=== PATIENT | female | born 1980 | race Caucasian/White ===

== ENCOUNTER 2024-11-29 12:32 | Observation (INO) | payer SELFPAY ==
[2024-11-29] VITALS (9 sets, daily range): BP systolic 93–125; BP diastolic 52–76; PULSE 78–98; RESP 17; TEMP 36.5–36.6; O2SAT 96–100; BMI 22.6; BMI 24.2
--- NOTE | 2024-11-29 12:45 | W.ED.ABDPA2 ---
Documented by User: TAD Mace 11/29/24 18:47 HPI - Abdominal Pain General: Chief Complaint: Abdominal Pain Stated Complaint: Upper ABD Pain Source: patient and EMS Mode of arrival: EMS Limitations: no limitations History of Present Illness: Patient is a 44-year-old female presents to ED today with a complaint of epigastric abdominal pain over the past 5 days or so. Patient states symptoms started with abdominal pain, diarrhea, fevers of up to 101. She states she has not had fevers in over 48 hours but continues to have epigastric pain along with nausea and vomiting as well as continued abdominal pain. No poor food exposures. No sick contacts. Vital signs are stable upon arrival. She denies history of acid reflux, GERD, peptic ulcers. MD elicited complaint: abdominal pain Onset (ago): day(s) Pain Consistency: constant Location: Diffuse Severity: moderate Pain scale (0-10): 7 Radiation: none Migration to: no migration Exacerbating factors: eating Relieving factors: nothing Associated Symptoms: Reports diarrhea, fever(s) (none in 48 hours), nausea and vomiting; Denies chills, dysuria, heartburn, hematochezia, hematuria, hematemesis and melena Related Data Home Medications ?Medication ?Instructions ?Recorded ?Confirmed No Known Home Medications 11/29/24 11/29/24 Allergies Allergy/AdvReac Type Severity Reaction Status Date / Time Penicillins Allergy Unknown Verified 11/29/24 12:43 Review of Systems Const: Reports: fever(s) (none in 48 hours); Denies: chills, body aches, fatigue or malaise Card: Denies: chest pain Resp: Denies: dyspnea GI: Reports: abdominal pain, nausea, vomiting and diarrhea; Denies: hematemesis, heartburn, hematochezia or melena : Denies: flank pain, dysuria or hematuria Musc: Denies: neck pain, back pain, extremity pain, extremity swelling, joint pain or joint swelling Skin/Breast: Denies: rash Neuro: Denies: headache(s), numbness in extremities, weakness in extremities, sensory changes or dizziness Physical Exam Const: COMMON NORMALS: no acute distress, no limitations, alert and well nourished GENERAL APPEARANCE: cooperative and disheveled ORIENTATION/CONSCIOUSNESS: Yes awake, Yes oriented to person, Yes oriented to place and Yes oriented to time Eye: COMMON NORMALS: no scleral icterus Resp: COMMON NORMALS: normal respiratory effort and clear to auscultation bilaterally AUSCULTATION: clear to auscultation bilaterally Cardio: COMMON NORMALS: regular rate and regular rhythm RATE: regular rate RHYTHM: regular rhythm GI: COMMON NORMALS: Normal to inspection, nondistended, normoactive bowel sounds present, Soft to palpation, No hepatosplenomegaly present and no masses INSPECTION: Yes normal to inspection AUSCULTATION: Yes normoactive bowel sounds PALPATION: Yes Soft to palpation, Yes Tenderness to palpation present (GI) (diffuse tenderness), No Guarding due to palpation present (GI), No Rigid due to palpation and Yes No hepatosplenomegaly present : COMMON NORMALS: Yes no CVA tenderness BLADDER/KIDNEY EXAM: Yes no CVA tenderness Back/Pelvis: COMMON NORMALS: no CVA tenderness, thoracic and lumbar spine normal to inspection and no thoracic nor lumbar tenderness Extremity: COMMON NORMALS: capillary refill normal, no clubbing, cyanosis or edema, no calf tenderness and no pedal edema GENERAL: Yes normal exam except as noted Neuro: CHARLES COMA SCALE: document GCS findings Charles coma scale eye opening: Spontaneous Charles coma scale verbal response: Orientated [place] coma scale motor response: Obey commands [place] coma scale total score: 15 COMMON NORMALS: moves all extremities, no focal motor deficits and no sensory deficits noted SENSORIUM/ORIENTATION: Yes alert, Yes oriented to person, Yes oriented to place and Yes oriented to time Skin: COMMON NORMALS: no rashes or lesions noted GENERAL SKIN EXAM: no rashes or lesions noted Course Vital Signs: Vital signs: Vital Signs Temperature 97.8 F 11/29/24 12:41 Pulse Rate 98 11/29/24 12:41 Respiratory Rate 17 11/29/24 16:34 Blood Pressure 108/75 11/29/24 16:22 Pulse Oximetry 96 11/29/24 16:22 Oxygen Delivery Me thod Room Air 11/29/24 16:22 MDM - Abdominal Pain Medical Decision Making Patient is a 44-year-old here for upper abdominal pain, nausea, vomiting. She states illness started 5 days ago with abdominal pain, diarrhea, and fevers. She states she has been afebrile over the past 48 hours. She arrives with stable vital signs. Blood work showing a normal white count. She does have significant elevations to her LFTs including a tbili of 6.0, AST and ALT at 2013/1558 and alk phos at 501. US imaging showing possible viral hepatitis. Common bile duct appeared normal. CT scan also concerning for hepatocellular disease such as viral hepatitis. They did not see any intrahepatic ductal dilatation. She did have air in bladder-possible gas forming UTI. She has not had recent catherization. UA here was contaminated but was positive for nitrates with 1+ leukocyte est and 3+ bacteria. I spoke to Dr. Hamm who is requesting MRCP before considering admission. MRCP results discussed with her and she is accepting patient as obs at this time. Dr. Steinberg aware of patient and will place admit orders. The case was discussed with: the nurse practitioner. Evaluation and management service: I agree with the evaluation and management decisions made in this patient's care. Results interpretation: I agree with the study interpretation in this patient's care, I agree with the documentation of the study interpretation. . Differential Diagnosis Likely abdominal pain, acute appendicitis, diverticulitis, gastroenteritis, pancreatitis and small bowel obstruction Medical Records I reviewed the patient's medical records. Lab Data I reviewed the patient's lab results. 11/29/24 13:12 11/29/24 13:12 Labs/Radiology: Radiology Impressions Abdomen/Pelvis CT 11/29/24 13:03 IMPRESSION: 1. Mild periportal edema within the liver. This can be due to rapid IV fluid hydration. 2. Mild diffuse gallbladder wall enhancement. No stones identified. May be secondary to hepatocellular disease such as viral hepatitis. 3. No intrahepatic duct dilatation. 4. No GI tract obstruction. 5. No renal obstruction. 6. Small amount of free fluid in the pelvis. 7. Fluid in the cervical canal. Correlate with menstrual cycle at this time and tampon usage. 8. Air in the urinary bladder. Correlate with recent catheterization. If there is no recent catheterization consider gas producing bacteria. No fistula identified. Gallbladder Ultrasound 11/29/24 14:18 IMPRESSION: 1. Echogenic portal triads throughout the liver with diffuse gallbladder wall thickening. Consider acute viral hepatitis as an etiology. 2. Diffuse gallbladder wall thickening but no stones identified. 3. Normal common bile duct. Cholangiopancreatography MRI 11/29/24 16:06 IMPRESSION: 1. Findings above likely related to mild primary duodenitis versus primary pancreatic head pancreatitis. Correlate with pancreatic enzymes. 2. Nonspecific periportal edema as well as likely reactive pericholecystic fluid. Correlate with liver function tests to exclude primary hepatitis and secondary pericholecystic fluid. 3. No evidence of gallstones, intra or extrahepatic biliary dilatation. No evidence of choledocholithiasis. Laboratory Results WBC 4.04 10^3/uL (3.29-11.43) 11/29/24 13:12 RBC 5.33 10^6/uL (3.85-5.65) 11/29/24 13:12 Hgb 16.00 g/dL (11.27-16.99) 11/29/24 13:12 Hct 46.5 % (36-47) 11/29/24 13:12 MCV 87.2 fl (85-98) 11/29/24 13:12 MCH 30.0 pg (27-33) 11/29/24 13:12 MCHC 34.4 g/dL (30-55) 11/29/24 13:12 RDW 13.2 % (12.1-15.1) 11/29/24 13:12 Plt Count 92 10^3/cmm (157-399) L 11/29/24 13:12 MPV 11.3 fL (7.4-10.4) H 11/29/24 13:12 Neut % (Auto) 64.8 % 11/29/24 13:12 Lymph % (Auto) 26.0 % 11/29/24 13:12 [place] % (Auto) 5.0 % 11/29/24 13:12 Eos % (Auto) 3.0 % 11/29/24 13:12 Baso % (Auto) 1.0 % 11/29/24 13:12 Neut # (Auto) 2.62 10^3/uL (1.8-7.7) 11/29/24 13:12 Lymph # (Auto) 1.1 10^3/uL (0.8-4.8) 11/29/24 13:12 [place] # (Auto) 0.2 10^3/uL (0.2-0.9) 11/29/24 13:12 Eos # (Auto) 0.1 10^3/uL (0.0-0.8) 11/29/24 13:12 Baso # (Auto) 0.0 10^3/uL (0.0-0.1) 11/29/24 13:12 Nucleated RBC % (auto) 0 % 11/29/24 13:12 Nucleated RBCs # 0.0 /100WBC 11/29/24 13:12 PT 13.70 SECONDS (12.1-14.9) 11/29/24 14:15 INR 0.98 (0.8-1.2) 11/29/24 14:15 APTT 29.1 SECONDS (23.9-36.7) 11/29/24 14:15 Sodium 137 mmol/L (136-145) 11/29/24 13:12 Potassium 3.5 mmol/L (3.5-5.1) 11/29/24 13:12 Chloride 96 mmol/L (98-107) L 11/29/24 13:12 Carbon Dioxide 25 mmol/L (22-29) 11/29/24 13:12 Anion Gap 19.5 (5-19) H 11/29/24 13:12 BUN 19 mg/dL (6-20) 11/29/24 13:12 Creatinine 0.6 mg/dL (0.5-0.9) 11/29/24 13:12 GFR Calculation 109.1 mL/min (90-130) 11/29/24 13:12 Glucose 95 mg/dL (65-115) 11/29/24 13:12 Calculated Osmolality 286 mOsm/kg (285-295) 11/29/24 13:12 Calcium 9.7 mg/dL (8.5-10.5) 11/29/24 13:12 Total Bilirubin 5.6 mg/dL (0.15-1.2) H 11/29/24 13:12 Total Bilirubin 6.0 mg/dL (0.15-1.2) H 11/29/24 13:12 Direct Bilirubin 4.36 mg/dL (0.00-0.30) H 11/29/24 13:12 Indirect Bilirubin 1.24 11/29/24 13:12 GGT 302 U/L (5-36) H 11/29/24 13:12 AST 2013 U/L (0-32) H 11/29/24 13:12 ALT 1558 U/L (0-33) H 11/29/24 13:12 Alkaline Phosphatase 501 U/L (35-105) H 11/29/24 13:12 Total Protein 6.8 g/dL (6.6-8.7) 11/29/24 13:12 Albumin 3.8 g/dL (3.5-5.2) 11/29/24 13:12 Globulin 3.0 g/dL (1.3-4.6) 11/29/24 13:12 Lipase 37 U/L (13-60) 11/29/24 13:12 HCG, Qual Negative (Negative) 11/29/24 13:12 Urine Color Dark yellow (Yellow) A 11/29/24 14:44 Urine Appearance Cloudy (CLEAR) A 11/29/24 14:44 Urine pH 5.5 (5-7) 11/29/24 14:44 Ur Specific [place] 1.030 (1.005-1.030) 11/29/24 14:44 Urine Protein 1+ (Negative) A 11/29/24 14:44 Urine Glucose (UA) Negative (Normal) 11/29/24 14:44 Urine Ketones Trace (Negative) 11/29/24 14:44 Urine Blood 2+ (Negative) A 11/29/24 14:44 Urine Nitrate Positive (Negative) A 11/29/24 14:44 Urine Bilirubin 3+ (Negative) H 11/29/24 14:44 Urine Urobilinogen 1.0 mg/dL (Negative) 11/29/24 14:44 Ur Leukocyte Esterase 1+ (Negative) A 11/29/24 14:44 Urine RBC 6-10 /hpf (0-2) 11/29/24 14:44 Urine WBC 11-20 /hpf (0-5) H 11/29/24 14:44 Ur Squamous Epith Cells 21-50 /hpf (0-5) H 11/29/24 14:44 Calcium Oxalate Crystal 15-25 /hpf H 11/29/24 14:44 Amorphous Sediment Not Reportable 11/29/24 14:44 Urine Bacteria 3+ /hpf (NONE) H 11/29/24 14:44 Hyaline Casts 18.61 /lpf 11/29/24 14:44 Salicylates < 0.3 mg/dL (3-10) L 11/29/24 13:12 Urine Opiates Screen Positive ng/mL (Negative) H 11/29/24 16:07 Acetaminophen < 5.0 ug/mL (10-30) L 11/29/24 13:12 Ur Barbiturates Screen Negative ng/mL (Negative) 11/29/24 16:07 Ur Phencyclidine Scrn Negative ng/mL (Negative) 11/29/24 16:07 Ur Amphetamines Screen Positive ng/mL (Negative) H 11/29/24 16:07 U Benzodiazepines Scrn Negative ng/mL (Negative) 11/29/24 16:07 Urine Cocaine Screen Negative ng/mL (Negative) 11/29/24 16:07 U Marijuana (THC) Screen Positive ng/mL (Negative) H 11/29/24 16:07 Ethyl Alcohol < 10 mg/dL (0-10) 11/29/24 13:12 Adenovirus (PCR) Not detected (NOT DETECT) 11/29/24 16:46 C. pneumoniae DNA (PCR) Not detected (NOT DETECT) 11/29/24 16:46 Coronavirus 229E (PCR) Not detected (NOT DETECT) 11/29/24 16:46 Hepatitis A IgM Ab Non-reactive (Nonreactive) 11/29/24 13:12 Hep Bs Antigen Non-reactive (Nonreactive) 11/29/24 13:12 Hep B Core IgM Ab Non-reactive (Nonreactive) 11/29/24 13:12 Hepatitis C Antibody Reactive (Nonreactive) H 11/29/24 13:12 Human Metapneumovir PCR Not detected (NOT DETECT) 11/29/24 16:46 Influenza A (H1) PCR Not detected (NOT DETECT) 11/29/24 16:46 Influ A (H1/09) PCR Not detected (NOT DETECT) 11/29/24 16:46 Influenza A (H3) PCR Not detected (NOT DETECT) 11/29/24 16:46 Influenza Type A (PCR) Not detected (NOT DETECT) 11/29/24 16:46 Influenza Type B (PCR) Not detected (NOT DETECT) 11/29/24 16:46 M. pneumoniae (PCR) Not detected (NOT DETECT) 11/29/24 16:46 Parainfluenza 1 (PCR) Not detected (NOT DETECT) 11/29/24 16:46 Parainfluenza 2 (PCR) Not detected (NOT DETECT) 11/29/24 16:46 Parainfluenza 3 (PCR) Not detected (NOT DETECT) 11/29/24 16:46 Parainfluenza 4 (PCR) Not detected (NOT DETECT) 11/29/24 16:46 RSV Type A (PCR) Not detected (NOT DETECT) 11/29/24 16:46 RSV Type B (PCR) Not detected (NOT DETECT) 11/29/24 16:46 Entero/Rhino (PCR) Not detected (NOT DETECT) 11/29/24 16:46 SARS-CoV-2 (PCR) Not detected (NOT DETECT) 11/29/24 16:46 All radiology interpretation(s) finalized by discharge Discharge Plan Discharge Patient Disposition: Placed in Observation Clinical Impression: Acute hepatitis, Transaminitis, Drug induced liver disease, Thrombocytopenia, Positive hepatitis C antibody test Coding Level of Care Code ED [employer] for Chg Fwd Documented by User: Vanessa Steinberg MD 11/29/24 18:40 HPI - Abdominal Pain General: Chief Complaint: Abdominal Pain Stated Complaint: Upper ABD Pain Related Data Home Medications ?Medication ?Instructions ?Recorded ?Confirmed No Known Home Medications 11/29/24 11/29/24 Allergies Allergy/AdvReac Type Severity Reaction Status Date / Time Penicillins Allergy Unknown Verified 11/29/24 12:43 Physical Exam Neuro: CHARLES COMA SCALE: document GCS findings [place] coma scale total score: 15 Course Vital Signs: Vital signs: Vital Signs Temperature 97.8 F 11/29/24 12:41 Pulse Rate 98 11/29/24 12:41 Respiratory Rate 17 11/29/24 16:34 Blood Pressure 108/75 11/29/24 16:22 Pulse Oximetry 96 11/29/24 16:22 Oxygen Delivery Me thod Room Air 11/29/24 16:22 MDM - Abdominal Pain Medical Decision Making Patient is a 44-year-old here for upper abdominal pain, nausea, vomiting. She states illness started 5 days ago with abdominal pain, diarrhea, and fevers. She states she has been afebrile over the past 48 hours. She arrives with stable vital signs. Blood work showing a normal white count. She does have significant elevations to her LFTs including a tbili of 6.0, AST and ALT at 2013/1558 and alk phos at 501. US imaging showing possible viral hepatitis. Common bile duct appeared normal. CT scan also concerning for hepatocellular disease such as viral hepatitis. They did not see any intrahepatic ductal dilatation. She did have air in bladder-possible gas forming UTI. She has not had recent catherization. UA here was contaminated but was positive for nitrates with 1+ leukocyte est and 3+ bacteria. I spoke to Dr. Hamm who is requesting MRCP before considering admission. The case was discussed with: the nurse practitioner. Evaluation and management service: I agree with the evaluation and management decisions made in this patient's care. Results interpretation: I agree with the study interpretation in this patient's care, I agree with the documentation of the study interpretation. . Lab Data 11/29/24 13:12 11/29/24 13:12 Labs/Radiology: Radiology Impressions Abdomen/Pelvis CT 11/29/24 13:03 IMPRESSION: 1. Mild periportal edema within the liver. This can be due to rapid IV fluid hydration. 2. Mild diffuse gallbladder wall enhancement. No stones identified. May be secondary to hepatocellular disease such as viral hepatitis. 3. No intrahepatic duct dilatation. 4. No GI tract obstruction. 5. No renal obstruction. 6. Small amount of free fluid in the pelvis. 7. Fluid in the cervical canal. Correlate with menstrual cycle at this time and tampon usage. 8. Air in the urinary bladder. Correlate with recent catheterization. If there is no recent catheterization consider gas producing bacteria. No fistula identified. Gallbladder Ultrasound 11/29/24 14:18 IMPRESSION: 1. Echogenic portal triads throughout the liver with diffuse gallbladder wall thickening. Consider acute viral hepatitis as an etiology. 2. Diffuse gallbladder wall thickening but no stones identified. 3. Normal common bile duct. Cholangiopancreatography MRI 11/29/24 16:06 IMPRESSION: 1. Findings above likely related to mild primary duodenitis versus primary pancreatic head pancreatitis. Correlate with pancreatic enzymes. 2. Nonspecific periportal edema as well as likely reactive pericholecystic fluid. Correlate with liver function tests to exclude primary hepatitis and secondary pericholecystic fluid. 3. No evidence of gallstones, intra or extrahepatic biliary dilatation. No evidence of choledocholithiasis. Laboratory Results WBC 4.04 10^3/uL (3.29-11.43) 11/29/24 13:12 RBC 5.33 10^6/uL (3.85-5.65) 11/29/24 13:12 Hgb 16.00 g/dL (11.27-16.99) 11/29/24 13:12 Hct 46.5 % (36-47) 11/29/24 13:12 MCV 87.2 fl (85-98) 11/29/24 13:12 MCH 30.0 pg (27-33) 11/29/24 13:12 MCHC 34.4 g/dL (30-55) 11/29/24 13:12 RDW 13.2 % (12.1-15.1) 11/29/24 13:12 Plt Count 92 10^3/cmm (157-399) L 11/29/24 13:12 MPV 11.3 fL (7.4-10.4) H 11/29/24 13:12 Neut % (Auto) 64.8 % 11/29/24 13:12 Lymph % (Auto) 26.0 % 11/29/24 13:12 [place] % (Auto) 5.0 % 11/29/24 13:12 Eos % (Auto) 3.0 % 11/29/24 13:12 Baso % (Auto) 1.0 % 11/29/24 13:12 Neut # (Auto) 2.62 10^3/uL (1.8-7.7) 11/29/24 13:12 Lymph # (Auto) 1.1 10^3/uL (0.8-4.8) 11/29/24 13:12 [place] # (Auto) 0.2 10^3/uL (0.2-0.9) 11/29/24 13:12 Eos # (Auto) 0.1 10^3/uL (0.0-0.8) 11/29/24 13:12 Baso # (Auto) 0.0 10^3/uL (0.0-0.1) 11/29/24 13:12 Nucleated RBC % (auto) 0 % 11/29/24 13:12 Nucleated RBCs # 0.0 /100WBC 11/29/24 13:12 PT 13.70 SECONDS (12.1-14.9) 11/29/24 14:15 INR 0.98 (0.8-1.2) 11/29/24 14:15 APTT 29.1 SECONDS (23.9-36.7) 11/29/24 14:15 Sodium 137 mmol/L (136-145) 11/29/24 13:12 Potassium 3.5 mmol/L (3.5-5.1) 11/29/24 13:12 Chloride 96 mmol/L (98-107) L 11/29/24 13:12 Carbon Dioxide 25 mmol/L (22-29) 11/29/24 13:12 Anion Gap 19.5 (5-19) H 11/29/24 13:12 BUN 19 mg/dL (6-20) 11/29/24 13:12 Creatinine 0.6 mg/dL (0.5-0.9) 11/29/24 13:12 GFR Calculation 109.1 mL/min (90-130) 11/29/24 13:12 Glucose 95 mg/dL (65-115) 11/29/24 13:12 Calculated Osmolality 286 mOsm/kg (285-295) 11/29/24 13:12 Calcium 9.7 mg/dL (8.5-10.5) 11/29/24 13:12 Total Bilirubin 5.6 mg/dL (0.15-1.2) H 11/29/24 13:12 Total Bilirubin 6.0 mg/dL (0.15-1.2) H 11/29/24 13:12 Direct Bilirubin 4.36 mg/dL (0.00-0.30) H 11/29/24 13:12 Indirect Bilirubin 1.24 11/29/24 13:12 GGT 302 U/L (5-36) H 11/29/24 13:12 AST 2013 U/L (0-32) H 11/29/24 13:12 ALT 1558 U/L (0-33) H 11/29/24 13:12 Alkaline Phosphatase 501 U/L (35-105) H 11/29/24 13:12 Total Protein 6.8 g/dL (6.6-8.7) 11/29/24 13:12 Albumin 3.8 g/dL (3.5-5.2) 11/29/24 13:12 Globulin 3.0 g/dL (1.3-4.6) 11/29/24 13:12 Lipase 37 U/L (13-60) 11/29/24 13:12 HCG, Qual Negative (Negative) 11/29/24 13:12 Urine Color Dark yellow (Yellow) A 11/29/24 14:44 Urine Appearance Cloudy (CLEAR) A 11/29/24 14:44 Urine pH 5.5 (5-7) 11/29/24 14:44 Ur Specific [place] 1.030 (1.005-1.030) 11/29/24 14:44 Urine Protein 1+ (Negative) A 11/29/24 14:44 Urine Glucose (UA) Negative (Normal) 11/29/24 14: Urine Ketones Trace (Negative) 11/29/24 14: Urine Blood 2+ (Negative) A 11/29/24 14:44 Urine Nitrate Positive (Negative) A 11/29/24 14:44 Urine Bilirubin 3+ (Negative) H 11/29/24 14:44 Urine Urobilinogen 1.0 mg/dL (Negative) 11/29/24 14:44 Ur Leukocyte Esterase 1+ (Negative) A 11/29/24 14:44 Urine RBC 6-10 /hpf (0-2) 11/29/24 14:44 Urine WBC 11-20 /hpf (0-5) H 11/29/24 14:44 Ur Squamous Epith Cells 21-50 /hpf (0-5) H 11/29/24 14:44 Calcium Oxalate Crystal 15-25 /hpf H 11/29/24 14:44 Amorphous Sediment Not Reportable 11/29/24 14:44 Urine Bacteria 3+ /hpf (NONE) H 11/29/24 14:44 Hyaline Casts 18.61 /lpf 11/29/24 14:44 Salicylates < 0.3 mg/dL (3-10) L 11/29/24 13:12 Urine Opiates Screen Positive ng/mL (Negative) H 11/29/24 16:07 Acetaminophen < 5.0 ug/mL (10-30) L 11/29/24 13:12 Ur Barbiturates Screen Negative ng/mL (Negative) 11/29/24 16:07 Ur Phencyclidine Scrn Negative ng/mL (Negative) 11/29/24 16:07 Ur Amphetamines Screen Positive ng/mL (Negative) H 11/29/24 16:07 U Benzodiazepines Scrn Negative ng/mL (Negative) 11/29/24 16:07 Urine Cocaine Screen Negative ng/mL (Negative) 11/29/24 16:07 U Marijuana (THC) Screen Positive ng/mL (Negative) H 11/29/24 16:07 Ethyl Alcohol < 10 mg/dL (0-10) 11/29/24 13:12 Adenovirus (PCR) Not detected (NOT DETECT) 11/29/24 16:46 C. pneumoniae DNA (PCR) Not detected (NOT DETECT) 11/29/24 16:46 Coronavirus 229E (PCR) Not detected (NOT DETECT) 11/29/24 16:46 Hepatitis A IgM Ab Non-reactive (Nonreactive) 11/29/24 13:12 Hep Bs Antigen Non-reactive (Nonreactive) 11/29/24 13:12 Hep B Core IgM Ab Non-reactive (Nonreactive) 11/29/24 13:12 Hepatitis C Antibody Reactive (Nonreactive) H 11/29/24 13:12 Human Metapneumovir PCR Not detected (NOT DETECT) 11/29/24 16:46 Influenza A (H1) PCR Not detected (NOT DETECT) 11/29/24 16:46 Influ A (H1/09) PCR Not detected (NOT DETECT) 11/29/24 16:46 Influenza A (H3) PCR Not detected (NOT DETECT) 11/29/24 16:46 Influenza Type A (PCR) Not detected (NOT DETECT) 11/29/24 16:46 Influenza Type B (PCR) Not detected (NOT DETECT) 11/29/24 16:46 M. pneumoniae (PCR) Not detected (NOT DETECT) 11/29/24 16:46 Parainfluenza 1 (PCR) Not detected (NOT DETECT) 11/29/24 16:46 Parainfluenza 2 (PCR) Not detected (NOT DETECT) 11/29/24 16:46 Parainfluenza 3 (PCR) Not detected (NOT DETECT) 11/29/24 16:46 Parainfluenza 4 (PCR) Not detected (NOT DETECT) 11/29/24 16:46 RSV Type A (PCR) Not detected (NOT DETECT) 11/29/24 16:46 RSV Type B (PCR) Not detected (NOT DETECT) 11/29/24 16:46 Entero/Rhino (PCR) Not detected (NOT DETECT) 11/29/24 16:46 SARS-CoV-2 (PCR) Not detected (NOT DETECT) 11/29/24 16:46 Discharge Plan Discharge Patient Disposition: Placed in Observation Clinical Impression: Acute hepatitis, Transaminitis, Drug induced liver disease, Thrombocytopenia, Positive hepatitis C antibody test Coding Level of Care Code ED [employer] Representative for Krystal Vivas
--- NOTE | 2024-11-29 13:03 | CT_ITS ---
WS: [id number] CT ABDOMEN AND PELVIS WITH CONTRAST HISTORY: pain, N/V/D TECHNIQUE: Imaging performed of the abdomen and pelvis with IV contrast. Single phase imaging of the abdomen. Coronal and sagittal reformats are submitted. All CT scans at [facility] use at least one of these dose optimization techniques: automated exposure control; mA and/or kV adjustment per patient size (includes targeted exams where dose is matched to clinical indication); or iterative reconstruction. IV CONTRAST: Omnipaque 350; 100 mL IV. Oral contrast: No DLP: 416.87 mGy.cm COMPARISON: None available. Lower thorax: Lung bases are clear. Heart is normal size. No hiatal hernia. Liver/biliary system: Normal size liver. Mild periportal edema. No liver mass. Normal common bile duct. Gallbladder: Mild diffuse gallbladder wall enhancement with mild thickening and a small amount of adjacent fluid. Pancreas: Normal size pancreas and pancreatic duct. No adjacent inflammation. Spleen: Normal size spleen. No mass or infarct. Adrenal glands: Normal. Right kidney: Normal size kidney. There is a very tiny cortical area of decreased attenuation in the upper pole which may be a small cyst. Too small to characterize. There is no renal obstruction. No perinephric stranding. Left kidney: Cortical thinning and scarring mid lateral kidney. Aorta: Mild atherosclerosis. Lymphadenopathy: None. Free fluid: Tiny amount of free fluid in the LEFT pelvis. GI tract: Nondistended stomach. Mild increased fluid in the duodenal C-loop. No obstruction. No small bowel obstruction. No evidence for appendicitis. No colitis. Abdominal wall: Unremarkable abdominal wall. No hernia. Pelvis: There is a small amount of free fluid in the pelvis. There is a small amount of air in the urinary bladder which may be from recent catheterization. There is also air along the cervical canal. Bones: Unremarkable. CT/CT abdomen pelvis w con* [id number] IMPRESSION: 1. Mild periportal edema within the liver. This can be due to rapid IV fluid h ydration. 2. Mild diffuse gallbladder wall enhancement. No stones identified. May be sec ondary to hepatocellular disease such as viral hepatitis. 3. No intrahepatic duct dilatation. 4. No GI tract obstruction. 5. No renal obstruction. 6. Small amount of free fluid in the pelvis. 7. Fluid in the cervical canal. Correlate with menstrual cycle at this time an d tampon usage. 8. Air in the urinary bladder. Correlate with recent catheterization. If there is no recent catheterization consider gas producing bacteria. No fistula ident ified.
[2024-11-29] MEDS: ondansetron 2 mg/ML SDV 2 mL 4 MG IVP (13:28)
[2024-11-29 13:41] LABS: Hematocrit 46.5 % (36-47); Hemoglobin 16.00 g/dL (11.27-16.99); Mean Corpuscular HGB Conc 34.4 g/dL (30-55); Mean Corpuscular Hemoglobin 30.0 pg (27-33); Mean Corpuscular Volume 87.2 fl (85-98); Nucleated Red Blood Cells % 0 %; Platelet Count 92 10^3/cmm (157-399); Red Blood Count 5.33 10^6/uL (3.85-5.65); White Blood Count 4.04 10^3/uL (3.29-11.43)
[2024-11-29 14:02] LABS: Albumin Level 3.8 g/dL (3.5-5.2); Alkaline Phosphatase 501 U/L (35-105); Anion Gap 19.5 (5-19); Blood Urea Nitrogen 19 mg/dL (6-20); Calcium 9.7 mg/dL (8.5-10.5); Carbon Dioxide 25 mmol/L (22-29); Chloride 96 mmol/L (98-107); Creatinine Clr Calc Pharmacy 116.3866; Globulin 3.0 g/dL (1.3-4.6); Glucose 95 mg/dL (65-115); Lipase 37 U/L (13-60); Osmolality Calculated 286 mOsm/kg (285-295); Potassium 3.5 mmol/L (3.5-5.1); Sodium 137 mmol/L (136-145); Total Protein 6.8 g/dL (6.6-8.7)
[2024-11-29 14:09] LABS: Slide Review Slide Review Perform
[2024-11-29 14:14] LABS: Alanine Aminotransferase 1558 U/L (0-33)
[2024-11-29 14:15] LABS: Aspartate Amino Transferase 2013 U/L (0-32)
--- NOTE | 2024-11-29 14:18 | US_ITS ---
WS: [id number] RIGHT UPPER QUADRANT ULTRASOUND HISTORY: ab pain, N/V; significan elevations to LFTs COMPARISON: None available. Liver: 15.0 cm in length. Liver is normal size. Echogenic portal triads are noted throughout the liver. No mass identified. Portal Vein: Normal hepatopetal flow with monophasic waveform. Gallbladder: Gallbladder is slightly contracted. More obvious is diffuse gallbladder wall thickening without adjacent fluid. Gallbladder wall measures up to 7 mm. No gallstones identified. CBD: 0.4 cm Pancreas: Normal size and echogenicity. Right kidney: 11.4 cm in length. Normal size and echogenicity. No hydronephrosis or mass. Possible tiny fibrotic scar in the superior pole RIGHT kidney. Aorta and IVC: Unremarkable abdominal aorta and IVC. No ascites. US/US gall bladder [id number] IMPRESSION: 1. Echogenic portal triads throughout the liver with diffuse gallbladder wall thickening. Consider acute viral hepatitis as an etiology. 2. Diffuse gallbladder wall thickening but no stones identified. 3. Normal common bile duct.
[2024-11-29 14:24] LABS: HCG, Serum Qual Negative (Negative)
[2024-11-29] MEDS: iohexol 350 mg/mL 500 mL Btl (per mL) IV (14:55)
[2024-11-29 14:57] LABS: Glucose Urine UA Negative (Normal); Nitrate Urine Positive (Negative); Specific Gravity, Urine 1.030 (1.005-1.030)
[2024-11-29 15:01] LABS: Add Urine Microscopic? YES; Universal Test for UA Present (0)
[2024-11-29 15:14] LABS: INR 0.98 (0.8-1.2); Prothrombin Time 13.70 SECONDS (12.1-14.9)
[2024-11-29 15:15] LABS: Partial Thromboplastin Time 29.1 SECONDS (23.9-36.7)
[2024-11-29 15:22] LABS: Hepatitis A Antibody IgM Non-Reactive (Nonreactive); Hepatitis B Surface Antigen Non-Reactive (Nonreactive)
--- NOTE | 2024-11-29 16:06 | MRR_ITS ---
PROCEDURE INFORMATION: Exam: MR Abdomen Without Contrast Exam date and time: 11/29/2024 4:47 PM Age: 44 years old Clinical indication: Abnormal findings; Abnormal lab test; Other: Elevated tbili/lfts TECHNIQUE: Imaging protocol: Magnetic resonance imaging of the abdomen without contrast. COMPARISON: CT abdomen pelvis w con* [id number] 11/29/2024 2:53 PM FINDINGS: Liver: There is some periportal edema. Mild periportal edema. Gallbladder and biliary ducts: No gallstones. Mild pericholecystic fluid. No definite intra or extrahepatic biliary dilatation. There is no evidence of choledocholithiasis. Pancreas: There is some edema surrounding the pancreatic head. No ductal dilation. Spleen: Unremarkable. No splenomegaly. Adrenal glands: Unremarkable. No mass. Kidneys: Unremarkable. No solid mass. No hydronephrosis. Stomach and bowel: Likely primary inflammatory changes of the duodenum. Intraperitoneal space: No free fluid. Vasculature: No abdominal aortic aneurysm. Lymph nodes: No enlarged nodes. Bones/joints: Unremarkable. No suspicious lesions. Soft tissues: Unremarkable. MR/MR MRCP [id number] IMPRESSION: 1. Findings above likely related to mild primary duodenitis versus primary pancreatic head pancreatitis. Correlate with pancreatic enzymes. 2. Nonspecific periportal edema as well as likely reactive pericholecystic fluid. Correlate with liver function tests to exclude primary hepatitis and secondary pericholecystic fluid. 3. No evidence of gallstones, intra or extrahepatic biliary dilatation. No evidence of choledocholithiasis.
[2024-11-29 16:32] LABS: PCP Screen Urine Negative (Negative)
[2024-11-29] MEDS: morphine 4 mg/mL SDV 1 mL IVP (16:34)
[2024-11-29 16:36] LABS: Acetaminophen < 5.0 ug/mL (10-30); Alcohol Level < 10 mg/dL (0-10); Salicylate < 0.3 mg/dL (3-10)
--- NOTE | 2024-11-29 17:09 | P.CONIM_ITS ---
Providers/Reason For Consult 2 Consulting Physician/Specialty*: Olivia Hamm MD/Hospitalist Reason for Consult*: deranged LFTs Requesting Physician: TAD Mace History of Present Illness History of Present Illness Yecenia Canela is a 44 year old female who is presented to the emergency room today with chief complaints of abdominal discomfort, fever nausea and vomiting. She was found to have deranged LFTs today with a T. bili of 6.0. Fractionated bilirubin is not available. AST 2000, ALT 1500, alkaline phosphatase of 501. Alcohol level is reported pending, salicylate is reported pending, acetaminophen level is reported pending. 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 Hepatitis A IgM nonreactive. Hepatitis B surface antigen nonreactive. Hepatitis B core IgM antibody is nonreactive. Hepatitis C antibody is reactive. HCVRNA is pending, expected turnaround time works 5 to 7 days. HIV sero status is not available. CT of the abdomen and pelvis is showing periportal edema within the liver. Mild diffuse gallbladder wall enhancement. No stones identified. No intrahepatic biliary ductal dilatation. Gallbladder ultrasound showing echogenic portal triads throughout the liver with diffuse gallbladder wall thickening. Normal CBD. I am asked to admit this patient for acute viral hepatitis, I have recommended obtaining MRP prior to admission here given elevated ALP, T bili, cholangitis not excluded at this time. She reports a history of hepatitis C diagnosed about 2 to 3 years ago. States that no treatment was recommended at the time. No known history of hepatitis B. Remote history of IV drug use. Denies any current use. States she is exposed to secondhand amphetamine smoke from her boyfriend. Patient denies any alcohol use. Review of Systems 2 General: Reports: 10 or more systems reviewed and unremarkable except in HPI and below Const: Denies: fever(s), chills or body aches Eyes: Denies: change in vision, blurry vision or photophobia ENMT: Reports: hoarseness; Denies: throat pain, enlarged tonsils, odynophagia or nasal congestion Card: Denies: chest pain, palpitations, irregular heart rhythm, edema, swelling of feet/ankles, lightheadedness, pre-syncope, dyspnea on exertion or orthopnea Resp: Denies: dyspnea, productive cough, non-productive cough, wheezing, stridor, pain on inspiration, change in phlegm color, hemoptysis or chest congestion GI: Denies: abdominal pain, nausea, vomiting, hematemesis, coffee ground emesis, dysphagia, heartburn, diarrhea, constipation, GI cramping, change in stool character, hematochezia or melena : Denies: flank pain, difficulty voiding, dysuria, urinary frequency, urinary urgency, urinary hesitancy or hematuria Musc: Denies: neck pain, back pain, extremity pain, joint swelling, joint warmth or deformity Neuro: Denies: headache(s), numbness in extremities, weakness in extremities, sensory changes, difficulty walking, frequent falls, dizziness, vertigo, behavioral changes, Slurred speech present or seizure-like activity Psych: Denies: anxiety, depression, suicidal ideation or homicidal ideation Endo: Denies: polyuria, polydipsia, tired all the time, cold intolerance or hot flashes Alonzo/Lymph: Denies: easy bruising or easy bleeding Medications/Allergies Home Medications ?Medication ?Instructions ?Recorded ?Confirmed ?Last Taken ?Type No Known Home Medications 11/29/2411/16 Unknown History Allergies Allergy/AdvReac Type Severity Reaction Status Date / Time Penicillins Allergy Unknown Verified 11/29/24 12:43 Vitals/I&O/Wt Last Vital Signs Temp 97.8 F 11/29/24 12:41 Pulse 98 11/29/24 12:41 Resp 17 11/29/24 16:34 BP 108/75 11/29/24 16:22 Pulse Ox 96 11/29/24 16:22 O2 Del Method Room Air 11/29/24 16:22 Weight last 48 hrs Weight 63.503 kg Physical Exam 2 Narrative: General: No acute distress, AO x3 HEENT: PERRLA, pupils bilaterally equal and reactive, pallors not present Chest: Normal vesicular breath sounds, no added sounds, equal good air entry bilaterally CVS: S1-S2 regular, no murmurs, no tachycardia, no gallops, no rubs Abdomen: Soft, TT epigatsric region, no organomegaly, bowel sounds present Neuro: No focal deficits, no facial deformity, AO x3, power 5/5 in all limbs Data 11/29/24 13:12 11/29/24 13:12 Other Labs: Radiology Impressions Abdomen/Pelvis CT 11/29/24 13:03 IMPRESSION: 1. Mild periportal edema within the liver. This can be due to rapid IV fluid hydration. 2. Mild diffuse gallbladder wall enhancement. No stones identified. May be secondary to hepatocellular disease such as viral hepatitis. 3. No intrahepatic duct dilatation. 4. No GI tract obstruction. 5. No renal obstruction. 6. Small amount of free fluid in the pelvis. 7. Fluid in the cervical canal. Correlate with menstrual cycle at this time and tampon usage. 8. Air in the urinary bladder. Correlate with recent catheterization. If there is no recent catheterization consider gas producing bacteria. No fistula identified. Gallbladder Ultrasound 11/29/24 14:18 IMPRESSION: 1. Echogenic portal triads throughout the liver with diffuse gallbladder wall thickening. Consider acute viral hepatitis as an etiology. 2. Diffuse gallbladder wall thickening but no stones identified. 3. Normal common bile duct. Laboratory Results WBC 4.04 10^3/uL (3.29-11.43) 11/29/24 13:12 RBC 5.33 10^6/uL (3.85-5.65) 11/29/24 13:12 Hgb 16.00 g/dL (11.27-16.99) 11/29/24 13:12 Hct 46.5 % (36-47) 11/29/24 13:12 MCV 87.2 fl (85-98) 11/29/24 13:12 MCH 30.0 pg (27-33) 11/29/24 13:12 MCHC 34.4 g/dL (30-55) 11/29/24 13:12 RDW 13.2 % (12.1-15.1) 11/29/24 13:12 Plt Count 92 10^3/cmm (157-399) L 11/29/24 13:12 MPV 11.3 fL (7.4-10.4) H 11/29/24 13:12 Neut % (Auto) 64.8 % 11/29/24 13:12 Lymph % (Auto) 26.0 % 11/29/24 13:12 [place] % (Auto) 5.0 % 11/29/24 13:12 Eos % (Auto) 3.0 % 11/29/24 13:12 Baso % (Auto) 1.0 % 11/29/24 13:12 Neut # (Auto) 2.62 10^3/uL (1.8-7.7) 11/29/24 13:12 Lymph # (Auto) 1.1 10^3/uL (0.8-4.8) 11/29/24 13:12 [place] # (Auto) 0.2 10^3/uL (0.2-0.9) 11/29/24 13:12 Eos # (Auto) 0.1 10^3/uL (0.0-0.8) 11/29/24 13:12 Baso # (Auto) 0.0 10^3/uL (0.0-0.1) 11/29/24 13:12 Nucleated RBC % (auto) 0 % 11/29/24 13:12 Nucleated RBCs # 0.0 /100WBC 11/29/24 13:12 PT 13.70 SECONDS (12.1-14.9) 11/29/24 14:15 INR 0.98 (0.8-1.2) 11/29/24 14:15 APTT 29.1 SECONDS (23.9-36.7) 11/29/24 14:15 Sodium 137 mmol/L (136-145) 11/29/24 13:12 Potassium 3.5 mmol/L (3.5-5.1) 11/29/24 13:12 Chloride 96 mmol/L (98-107) L 11/29/24 13:12 Carbon Dioxide 25 mmol/L (22-29) 11/29/24 13:12 Anion Gap 19.5 (5-19) H 11/29/24 13:12 BUN 19 mg/dL (6-20) 11/29/24 13:12 Creatinine 0.6 mg/dL (0.5-0.9) 11/29/24 13:12 GFR Calculation 109.1 mL/min (90-130) 11/29/24 13:12 Glucose 95 mg/dL (65-115) 11/29/24 13:12 Calculated Osmolality 286 mOsm/kg (285-295) 11/29/24 13:12 Calcium 9.7 mg/dL (8.5-10.5) 11/29/24 13:12 Total Bilirubin 6.0 mg/dL (0.15-1.2) H 11/29/24 13:12 AST 2013 U/L (0-32) H 11/29/24 13:12 ALT 1558 U/L (0-33) H 11/29/24 13:12 Alkaline Phosphatase 501 U/L (35-105) H 11/29/24 13:12 Total Protein 6.8 g/dL (6.6-8.7) 11/29/24 13:12 Albumin 3.8 g/dL (3.5-5.2) 11/29/24 13:12 Globulin 3.0 g/dL (1.3-4.6) 11/29/24 13:12 Lipase 37 U/L (13-60) 11/29/24 13:12 HCG, Qual Negative (Negative) 11/29/24 13:12 Urine Color Dark yellow (Yellow) A 11/29/24 14:44 Urine Appearance Cloudy (CLEAR) A 11/29/24 14:44 Urine pH 5.5 (5-7) 11/29/24 14:44 Ur Specific [place] 1.030 (1.005-1.030) 11/29/24 14:44 Urine Protein 1+ (Negative) A 11/29/24 14:44 Urine Glucose (UA) Negative (Normal) 11/29/24 14:44 Urine Ketones Trace (Negative) 11/29/24 14:44 Urine Blood 2+ (Negative) A 11/29/24:44 Urine Nitrate Positive (Negative) A 11/29/24 14:44 Urine Bilirubin 3+ (Negative) H 11/29/24 14:44 Urine Urobilinogen 1.0 mg/dL (Negative) 11/29/24 14:44 Ur Leukocyte Esterase 1+ (Negative) A 11/29/24 14:44 Urine RBC 6-10 /hpf (0-2) 11/29/24 14:44 Urine WBC 11-20 /hpf (0-5) H 11/29/24 14:44 Ur Squamous Epith Cells 21-50 /hpf (0-5) H 11/29/24 14:44 Calcium Oxalate Crystal 15-25 /hpf H 11/29/24 14:44 Amorphous Sediment Not Reportable 11/29/24 14:44 Urine Bacteria 3+ /hpf (NONE) H 11/29/24 14:44 Hyaline Casts 18.61 /lpf 11/29/24 14:44 Salicylates < 0.3 mg/dL (3-10) L 11/29/24 13:12 Urine Opiates Screen Positive ng/mL (Negative) H 11/29/24 16:07 Acetaminophen < 5.0 ug/mL (10-30) L 11/29/24 13:12 Ur Barbiturates Screen Negative ng/mL (Negative) 11/29/24 16:07 Ur Phencyclidine Scrn Negative ng/mL (Negative) 11/29/24 16:07 Ur Amphetamines Screen Positive ng/mL (Negative) H 11/29/24 16:07 U Benzodiazepines Scrn Negative ng/mL (Negative) 11/29/24 16:07 Urine Cocaine Screen Negative ng/mL (Negative) 11/29/24 16:07 U Marijuana (THC) Screen Positive ng/mL (Negative) H 11/29/24 16:07 Ethyl Alcohol < 10 mg/dL (0-10) 11/29/24 13:12 Hepatitis A IgM Ab Non-reactive (Nonreactive) 11/29/24 13:12 Hep Bs Antigen Non-reactive (Nonreactive) 11/29/24 13:12 Hep B Core IgM Ab Non-reactive (Nonreactive) 11/29/24 13:12 Hepatitis C Antibody Reactive (Nonreactive) H 11/29/24 13:12 A&P Assessment and plan 1. Transaminitis: 2. Acute hepatitis: 3. Drug induced liver disease: 4. Positive hepatitis C antibody test: 5. Thrombocytopenia: Plan: 44-year-old lady with a remote history of IV drug use, however currently with a positive drug screen for methamphetamines, presenting to the hospital with 3 to 4 days of fever, abdominal pain, diarrhea which is now resolved, nausea vomiting and jaundice. Ultrasound of the liver showed echogenic portal triads throughout the liver with diffuse gallbladder wall thickening. Diffuse gallbladder wall thickening but no stones. I have recommended an MRCP which is currently pending. Alcohol level, acetaminophen, salicylate level currently pending. Will review when available. Negative acute hep A IgM. Negative hepatitis B surface antigen. It is neither acute hepatitis A nor acute hepatitis B. Hepatitis C serology positive. Patient reports a history of being diagnosed with hepatitis C 2 years ago. Reports that no treatment was recommended at that time , though she is uncertain why. She does not have acute hepatitis C. Hepatitis C PCR is currently pending. Will review when available in 5 to 7 days to see if patient may have chronic hepatitis C which will require outpatient treatment. Ultrasound of the gallbladder does not show any vascular compromise, unlikely ischemic hepatitis. Urine drug screen is positive for methamphetamines, potentially may be related to drug use. IV hydration with normal saline at 100 cc an hour. No current signs of pancreatitis. Normal PT/INR and albumin. No signs of acute liver failure at this time. Given history of IV drug use, currently positive drug screen cannot rule out ongoing abuse, check blood culture for endocarditis. Screen for syphilis. Patient has a faint maculopapular rash of uncertain chronicity. HIV antigen antibody screen recommended. Patient consents to the same. Check urine GC and chlamydia screen. Thrombocytopenia noted at 92,000. No prior comparative available. Monitor for bleeding. No directed intervention for now. Final disposition is pending MRCP. If MRCP shows biliary obstruction, patient will need to be transferred for ERCP. If alcohol levels, acetaminophen levels or salicylate levels returned elevated will be treated accordingly. Check extended respiratory viral panel If above tests are negative, possibly acute hepatitis of uncertain etiology, perhaps related to drug use. Treatment will be supportive in this setting. With IV hydration and serial monitoring. Patient may be admitted in observation in that situation. If patient is admitted, please consider this note to be the H&P. PDMP PDMP Reviewed: Not Reviewed Consult Attestations 2 Medical Necessity Statement: Less than 2 midnight stay anticipated if MRCP negative Coding Level of Care Code Acute Code for Chg Fwd Diagnoses Transaminitis R74.01 Acute hepatitis B17.9 Drug induced liver disease K71.9 Positive hepatitis C antibody test R76.89 Thrombocytopenia D69.6
[2024-11-29 18:42] LABS: Coronavirus 229E,HKU1,NL63,OC4 Not Detected (NOT DETECT); Parainfluenza Virus Type 1 Not Detected (NOT DETECT); Parainfluenza Virus Type 2 Not Detected (NOT DETECT); Parainfluenza Virus Type 3 Not Detected (NOT DETECT); Parainfluenza Virus Type 4 Not Detected (NOT DETECT); SARS-COV-2 Not Detected (NOT DETECT)
[2024-11-29 19:11] LABS: HIV 1 & 2 Antigen Non-Reactive (Non-Reactiv)
[2024-11-29 20:25] LABS: Neisseria Gonorrhea NOT DETECTED (Negative)
[2024-11-29 21:37] LABS: Triglycerides 309 mg/dL (0-150)
[2024-11-29 23:31] LABS: Lactic Sepsis W/Reflex 3.0 mmol/L (0.5-2.2)
[2024-11-30 00:59] LABS: Reflex Lactate Order REFLEX LACTIC ORDERD
[2024-11-30 01:46] LABS: Hematocrit 35.2 % (36-47); Hemoglobin 12.20 g/dL (11.27-16.99); Mean Corpuscular HGB Conc 34.7 g/dL (30-55); Mean Corpuscular Hemoglobin 29.9 pg (27-33); Mean Corpuscular Volume 86.3 fl (85-98); Nucleated Red Blood Cells % 0 %; Platelet Count 85 10^3/cmm (157-399); Red Blood Count 4.08 10^6/uL (3.85-5.65); White Blood Count 3.90 10^3/uL (3.29-11.43)
[2024-11-30 02:01] LABS: Lactic Acid level (Lactate) 2.1 mmol/L (0.5-2.2)
[2024-11-30 02:02] LABS: Albumin Level 3.2 g/dL (3.5-5.2); Alkaline Phosphatase 387 U/L (35-105); Anion Gap 15.4 (5-19); Blood Urea Nitrogen 15 mg/dL (6-20); Calcium 8.4 mg/dL (8.5-10.5); Carbon Dioxide 25 mmol/L (22-29); Chloride 98 mmol/L (98-107); Creatinine Clr Calc Pharmacy 119.8144; Globulin 2.2 g/dL (1.3-4.6); Glucose 114 mg/dL (65-115); Osmolality Calculated 282 mOsm/kg (285-295); Potassium 3.4 mmol/L (3.5-5.1); Sodium 135 mmol/L (136-145); Total Protein 5.4 g/dL (6.6-8.7)
[2024-11-30 02:14] LABS: Alanine Aminotransferase 980 U/L (0-33)
[2024-11-30 02:17] LABS: Aspartate Amino Transferase 931 U/L (0-32)
[2024-11-30 02:24] LABS: Slide Review Slide Review Perform
[2024-11-30 04:00] VITALS: BP 104/60; PULSE 90; RESP 17; TEMP 36.8; O2SAT 97
[2024-11-30 07:32] VITALS: BP 101/66; PULSE 91; RESP 16; O2SAT 97
[2024-11-30 08:01] VITALS: BP 101/66; PULSE 91; RESP 16
--- NOTE | 2024-11-30 10:33 | PC.CHAP ---
Pastoral Care Encounter/Spiritual Assessment Type of Contact [] Declined entrepreneurial finance professor visit [] Patient/Family/Request visit [] Outpatient visit [] Follow-up visit [] Physician referral [] Code/Alert [] Routine visit [] Staff referral [] Actively dying [x] Patient sleeping [] Family support [] [] Out of room [] Palliative care [] [] Receiving care in room [] Pre-surgical visit [] Trauma [] Long length of stay [] ICU visit [] Other: Relational/Emotional Strength [] Patient feels connected with others/family/visitors/staff [] Distress [] Loneliness/isolation [] Abandonment Spirituality of Patient [] Person of Cecelia [] Attends Caodaism of their Cecelia [] Believes in Prayer [] Reads Bible or Zoroastrian materials [] There are Spiritual issues to be addressed Upper Extremity Surgeon Interventions [] Prayer [] Active listening [] Non-anxious presence [] Spiritual/emotional support [] Crisis/trauma care [] Spiritual counseling [] Bereavement support [] Provided bereavement packet [] Provided Bible/devotional materials [] Provided toy/stuffed animal, coloring book to patient or family member [] Provided Communion [] Anointing/[place] [] Salvation [] Completed spiritual assessment [] Other: Impact on Illness or Injury [] Angry [] Fearful [] Anxious [] Often cries [] Exhaustion [] Unable to work [] Unable to attend gnosticist [] Unable to walk/stand [] Unable to read [] Unable to drive [] Unable to eat/drink [] Unable to sleep [] Unable to be with family [] Patient intubated [] Other: Summary Time spent with patient
[2024-11-30 11:12] VITALS: BP 115/64; PULSE 73; RESP 18; TEMP 36.5; O2SAT 98
[2024-11-30 12:25] VITALS: BP 115/64; PULSE 73; RESP 18; TEMP 36.5; O2SAT 98
--- NOTE | 2024-11-30 12:31 | PC.NURSE ---
Discussed discharge paperwork with patient and follow up appointments. No medications for patient to go home on. Patient verbalized understanding of discharge and had no questions.
--- NOTE | 2024-11-30 15:12 | PM.DCS ---
Discharge Providers Date of Admission: 11/29/24 18:34 Date of Discharge: November 30, 2024 Attending Provider at Admission: Olivia Hamm MD Attending Provider at Discharge: Olivia Hamm MD Diagnoses at Discharge Discharge Diagnosis 1. Transaminitis: 2. Acute hepatitis: 3. Drug induced liver disease: 4. Positive hepatitis C antibody test: 5. Thrombocytopenia: Reason for Visit Reason for Visit: Upper ABD Pain Hospital Course Hospital Course 44-year-old lady presented to the emergency room with chief complaints of abdominal discomfort fever nausea and vomiting. She was found to have deranged LFTs with a T. bili of 6.0, AST 2000, ALT 1500, alkaline phosphatase of 501. She underwent an MRCP that ruled out biliary obstruction. Lipase level was normal. Ultrasound and MRCP showed possible hepatitis. Alcohol, acetaminophen, salicylate level were reported normal. Acute viral hepatitis panel negative for hep A IgM, negative hep B surface antigen. Patient has a known history of hepatitis C which was diagnosed 2 years ago. Hepatitis C antibody was positive. Hepatitis C PCR was taken and is currently pending. Expected to return within 5 to 7 days. States that previously she was not offered any treatment as she was told she does not need it. She does not recall her PCR from that time. Urine drug screen was positive for methamphetamines. Possibly acute hepatic injury may have been related to methamphetamine use. PT/INR were normal. She had mild thrombocytopenia at 92,000, unknown duration. LFTs were improving with supportive management today. T. bili down to 4.2. AST down from 2000-930. ALT down from 15 100-980. Alkaline phosphatase 500-387. Patient is feeling clinically much better today. She is able to tolerate p.o. intake. She is discharged today in a stable condition. Recommended to follow-up with primary care provider in the next week to follow-up on serial improvement in her LFTs. Hepatitis C PCR, if returns positive will require referral to the infectious disease clinic at that time. Physical Exam Narrative: General: No acute distress, AO x3 HEENT: PERRLA, pupils bilaterally equal and reactive, pallors not present Chest: Normal vesicular breath sounds, no added sounds, equal good air entry bilaterally CVS: S1-S2 regular, no murmurs, no tachycardia, no gallops, no rubs Abdomen: Soft, nontender, no organomegaly, bowel sounds present Neuro: No focal deficits, no facial deformity, AO x3, power 5/5 in all limbs Discharge Data Studies Completed and Pending Completed Studies During Hospitalization Category Date Time Status CT abdomen pelvis w con* [id number] Stat Cat Scan 11/29/24 13:03 Completed MR MRCP [id number] Stat MRI 11/29/24 16:06 Completed US gall bladder [id number] Stat Ultrasound 11/29/24 14:18 Completed Pending at discharge Category Date Time Status Blood Culture Stat Lab 11/29/24 23:00 Results Hepatitis C RNA Viral Load Qnt Routine Lab 11/29/24 15:59 Received RPR with Reflex to Titer Routine Lab 11/29/24 23:00 Received Radiology Impressions Abdomen/Pelvis CT 11/29/24 13:03 IMPRESSION: 1. Mild periportal edema within the liver. This can be due to rapid IV fluid hydration. 2. Mild diffuse gallbladder wall enhancement. No stones identified. May be secondary to hepatocellular disease such as viral hepatitis. 3. No intrahepatic duct dilatation. 4. No GI tract obstruction. 5. No renal obstruction. 6. Small amount of free fluid in the pelvis. 7. Fluid in the cervical canal. Correlate with menstrual cycle at this time and tampon usage. 8. Air in the urinary bladder. Correlate with recent catheterization. If there is no recent catheterization consider gas producing bacteria. No fistula identified. Gallbladder Ultrasound 11/29/24 14:18 IMPRESSION: 1. Echogenic portal triads throughout the liver with diffuse gallbladder wall thickening. Consider acute viral hepatitis as an etiology. 2. Diffuse gallbladder wall thickening but no stones identified. 3. Normal common bile duct. Cholangiopancreatography MRI 11/29/24 16:06 IMPRESSION: 1. Findings above likely related to mild primary duodenitis versus primary pancreatic head pancreatitis. Correlate with pancreatic enzymes. 2. Nonspecific periportal edema as well as likely reactive pericholecystic fluid. Correlate with liver function tests to exclude primary hepatitis and secondary pericholecystic fluid. 3. No evidence of gallstones, intra or extrahepatic biliary dilatation. No evidence of choledocholithiasis. Laboratory Results WBC 3.90 10^3/uL (3.29-11.43) 11/30/24 01:28 RBC 4.08 10^6/uL (3.85-5.65) 11/30/24 01:28 Hgb 12.20 g/dL (11.27-16.99) 11/30/24 01: Hct 35.2 % (36-47) L 11/30/24: MCV 86.3 fl (85-98) 11/30/24 01: MCH 29.9 pg (27-33) 11/30/24 01: MCHC 34.7 g/dL (30-55) 11/30/24 01: RDW 13.3 % (12.1-15.1) 11/30/24 01:28 Plt Count 85 10^3/cmm (157-399) L 11/30/24 01:28 MPV 11.0 fL (7.4-10.4) H 11/30/24 01: Neut % (Auto) 32.1 % 11/30/24 01: Lymph % (Auto) 55.6 % 11/30/24 01: [place] % (Auto) 7.4 % 11/30/24 01: Eos % (Auto) 3.3 % 11/30/24 01: Baso % (Auto) 1.3 % 11/30/24 01:28 Neut # (Auto) 1.25 10^3/uL (1.8-7.7) L 11/30/24 01: Lymph # (Auto) 2.2 10^3/uL (0.8-4.8) 11/30/24 01:28 [place] # (Auto) 0.3 10^3/uL (0.2-0.9) 11/30/24 01:28 Eos # (Auto) 0.1 10^3/uL (0.0-0.8) 11/30/24 01:28 Baso # (Auto) 0.1 10^3/uL (0.0-0.1) 11/30/24 01: Nucleated RBC % (auto) 0 % 11/30/24 01: Nucleated RBCs # 0.0 /100WBC 11/30/24 01:28 PT 13.70 SECONDS (12.1-14.9) 11/29/24 14:15 INR 0.98 (0.8-1.2) 11/29/24 14:15 APTT 29.1 SECONDS (23.9-36.7) 11/29/24 14:15 Sodium 135 mmol/L (136-145) L 11/30/24 01:28 Potassium 3.4 mmol/L (3.5-5.1) L 11/30/24 01:28 Chloride 98 mmol/L (98-107) 11/30/24 01:28 Carbon Dioxide 25 mmol/L (22-29) 11/30/24 01:28 Anion Gap 15.4 (5-19) 11/30/24 01:28 BUN 15 mg/dL (6-20) 11/30/24 01:28 Creatinine 0.6 mg/dL (0.5-0.9) 11/30/24 01:28 GFR Calculation 109.1 mL/min (90-130) 11/30/24 01:28 Glucose 114 mg/dL (65-115) 11/30/24 01:28 Calculated Osmolality 282 mOsm/kg (285-295) L 11/30/24 01:28 Lactic Acid 3.0 mmol/L (0.5-2.2) H 11/29/24 23:00 Lactic Acid (Sepsis) 2.1 mmol/L (0.5-2.2) 11/30/24 01:28 Calcium 8.4 mg/dL (8.5-10.5) L 11/30/24 01:28 Total Bilirubin 4.2 mg/dL (0.15-1.2) H 11/30/24 01:28 Direct Bilirubin 4.36 mg/dL (0.00-0.30) H 11/29/24 13:12 Indirect Bilirubin 1.24 11/29/24 13:12 GGT 302 U/L (5-36) H 11/29/24 13:12 AST 931 U/L (0-32) H 11/30/24 01:28 ALT 980 U/L (0-33) H 11/30/24 01:28 Alkaline Phosphatase 387 U/L (35-105) H 11/30/24 01:28 Total Protein 5.4 g/dL (6.6-8.7) L D 11/30/24 01:28 Albumin 3.2 g/dL (3.5-5.2) L 11/30/24 01:28 Globulin 2.2 g/dL (1.3-4.6) 11/30/24 01:28 Triglycerides 309 mg/dL (0-150) H 11/29/24 13:12 Lipase 37 U/L (13-60) 11/29/24 13:12 HCG, Qual Negative (Negative) 11/29/24 13:12 Urine Color Dark yellow (Yellow) A 11/29/24 14:44 Urine Appearance Cloudy (CLEAR) A 11/29/24 14:44 Urine pH 5.5 (5-7) 11/29/24 14:44 Ur Specific [place] 1.030 (1.005-1.030) 11/29/24 14:44 Urine Protein 1+ (Negative) A 11/29/24 14:44 Urine Glucose (UA) Negative (Normal) 11/29/24 14:44 Urine Ketones Trace (Negative) 11/29/24 14: Urine Blood 2+ (Negative) A 11/29/24 14:44 Urine Nitrate Positive (Negative) A 11/29/24 14:44 Urine Bilirubin 3+ (Negative) H 11/29/24 14:44 Urine Urobilinogen 1.0 mg/dL (Negative) 11/29/24 14:44 Ur Leukocyte Esterase 1+ (Negative) A 11/29/24 14:44 Urine RBC 6-10 /hpf (0-2) 11/29/24 14:44 Urine WBC 11-20 /hpf (0-5) H 11/29/24 14:44 Ur Squamous Epith Cells 21-50 /hpf (0-5) H 11/29/24 14:44 Calcium Oxalate Crystal 15-25 /hpf H 11/29/24 14:44 Amorphous Sediment Not Reportable 11/29/24 14:44 Urine Bacteria 3+ /hpf (NONE) H 11/29/24 14:44 Hyaline Casts 18.61 /lpf 11/29/24 14:44 Salicylates < 0.3 mg/dL (3-10) L 11/29/24 13:12 Urine Opiates Screen Positive ng/mL (Negative) H 11/29/24 16:07 Acetaminophen < 5.0 ug/mL (10-30) L 11/29/24 13:12 Ur Barbiturates Screen Negative ng/mL (Negative) 11/29/24 16:07 Ur Phencyclidine Scrn Negative ng/mL (Negative) 11/29/24 16:07 Ur Amphetamines Screen Positive ng/mL (Negative) H 11/29/24 16:07 U Benzodiazepines Scrn Negative ng/mL (Negative) 11/29/24 16:07 Urine Cocaine Screen Negative ng/mL (Negative) 11/29/24 16:07 U Marijuana (THC) Screen Positive ng/mL (Negative) H 11/29/24 16:07 Ethyl Alcohol < 10 mg/dL (0-10) 11/29/24 13:12 Adenovirus (PCR) Not detected (NOT DETECT) 11/29/24 16:46 C. pneumoniae DNA (PCR) Not detected (NOT DETECT) 11/29/24 16:46 C. trachomatis (PCR) Not detected (Negative) 11/29/24 16:07 Coronavirus 229E (PCR) Not detected (NOT DETECT) 11/29/24 16:46 Hepatitis A IgM Ab Non-reactive (Nonreactive) 11/29/24 13:12 Hep Bs Antigen Non-reactive (Nonreactive) 11/29/24 13:12 Hep B Core IgM Ab Non-reactive (Nonreactive) 11/29/24 13:12 Hepatitis C Antibody Reactive (Nonreactive) H 11/29/24 13:12 HIV 1&2 Ab & HIV 1 Ag Non-reactive (Non-Reactiv) 11/29/24 13:12 HIV 1&2 Antibody Non-reactive (Non-Reactiv) 11/29/24 13:12 Human Metapneumovir PCR Not detected (NOT DETECT) 11/29/24 16:46 Influenza A (H1) PCR Not detected (NOT DETECT) 11/29/24 16:46 Influ A (H1/09) PCR Not detected (NOT DETECT) 11/29/24 16:46 Influenza A (H3) PCR Not detected (NOT DETECT) 11/29/24 16:46 Influenza Type A (PCR) Not detected (NOT DETECT) 11/29/24 16:46 Influenza Type B (PCR) Not detected (NOT DETECT) 11/29/24 16:46 M. pneumoniae (PCR) Not detected (NOT DETECT) 11/29/24 16:46 N. gonorrhoeae (PCR) Not detected (Negative) 11/29/24 16:07 Parainfluenza 1 (PCR) Not detected (NOT DETECT) 11/29/24 16:46 Parainfluenza 2 (PCR) Not detected (NOT DETECT) 11/29/24 16:46 Parainfluenza 3 (PCR) Not detected (NOT DETECT) 11/29/24 16:46 Parainfluenza 4 (PCR) Not detected (NOT DETECT) 11/29/24 16:46 RSV Type A (PCR) Not detected (NOT DETECT) 11/29/24 16:46 RSV Type B (PCR) Not detected (NOT DETECT) 11/29/24 16:46 Entero/Rhino (PCR) Not detected (NOT DETECT) 11/29/24 16:46 SARS-CoV-2 (PCR) Not detected (NOT DETECT) 11/29/24 16:46 Vitals Last Vital Signs Temp 97.7 F 11/30/24 12:25 Pulse 73 11/30/24 12:25 Resp 18 11/30/24 12:25 BP 115/64 11/30/24 12:25 Pulse Ox 98 11/30/24 12:25 O2 Del Method Room Air 11/30/24 11:12 Discharge Plan Discharge Patient Disposition: Home Condition: Stable Prescriptions: No Action No Known Home Medications Discharge Order = DC NOW: Discharge Order (Routine); Ordered 11/30/24 Ordered By: Olivia Hamm Referrals: Tati Mauricio FNP-C [Nurse Practitioner, Family Practice] - 12/06/24 10:40 am Patient Instructions: Hepatitis C (GEN), Methamphetamine Use Disorder (GEN), Opioid Safety, Patient Portal & Jose Luis Instructions Discharge Attestations Time Spent in Discharge Care*: greater than 30 min Quality Metrics Clinical Quality Measures [ No reported AMI, CVA or VTE this stay] Coding Level of Care Code Acute Code for Chg Fwd Diagnoses Transaminitis R74.01 Acute hepatitis B17.9 Drug induced liver disease K71.9 Positive hepatitis C antibody test R76.89 Thrombocytopenia D69.6
[2024-12-01 10:14] LABS: RPR w(Moniotor) w/REFL Titer NON-REACTIVE (NON-REACTIVE)
[2024-12-01 15:19] LABS: HEP C RNA Viral Load Quant 5.85 Log IU/mL (NOT DETECTED); HEP C RNA Viral Load Quant 714000 IU/mL (NOT DETECTED)
== END 2024-11-30 12:30 | disposition home or self-care (01) ==
LOC: ER 20:09 → MEDSURG 20:12
PROVIDERS: Admitting Provider Student in an Organized Health Care Education/Training Program; Emergency Provider Physician Assistant; Visit Provider Student in an Organized Health Care Education/Training Program
DX: R74.01 Elevation of levels of liver transaminase levels (principal); B17.9 Acute viral hepatitis, unspecified; K71.9 Toxic liver disease, unspecified; R76.89 Other specified abnormal immunological findings in serum; D69.6 Thrombocytopenia, unspecified; F15.11 Other stimulant abuse, in remission
CPT/HCPCS: 36415; 74177; 74181; 76705; 80053; 80074; 80306; 80307; 81001; 82247; 82248; 82977; 83605; 83690; 84478; 84703; 85025; 85610; 85730; 86592; 87040; 87486; 87491; 87522; 87581; 87591; 87633; 87806; 96361; 96374; 96375; 99285; G0378; J2270; J2405; J7030; J9999